=== PATIENT | male | born 1960 | race Caucasian/White ===

== ENCOUNTER → 2024-06-15 07:20 | Outpatient (REF) | payer BC, MEDICARE, SELFPAY | LOC: DHCBC/DCA 07:20 | PROVIDERS: ATTENDING PHYSICIAN Internal Medicine Cardiovascular Disease; FAMILY PHYSICIAN Family Medicine | DX: I25.10 Atherosclerotic heart disease of native coronary artery without angina pectoris (principal); R06.02 Shortness of breath; E66.9 Obesity, unspecified | CPT/HCPCS: 78452; 93017; A9500 ==